=== PATIENT | male | born 1965 | race African-American/Black ===

== ENCOUNTER 2019-02-06 11:59 | Inpatient (IN) | payer MEDICAID ==
[2019-02-06] VITALS (28 sets, daily range): BP systolic 118–202; BP diastolic 62–129
[~2019-02-06] VITALS: Ht 175.3 cm; Wt 79.4 kg
[~2019-02-06 11:59] MED LIST: HEPARIN SODIUM 1,000 UNIT/1ML VIAL IV ONE; NICARDIPINE 100MCG/ML 10ML VIAL (CATH LAB) IV ONE; NITROGLYCERIN 50MCG/ML 10ML VIAL (CATH LAB) IV ONE
[2019-02-06] MEDS ORDERED: ASPIRIN 325MG EC TABLET PO ONE (12:30)
[2019-02-06] MEDS ORDERED: NITROGLYCERIN 0.4MG TABLET SL SL PRN (12:30)
[2019-02-06] MEDS ORDERED: HEPARIN 5000 UNITS/ML VIAL IV ONE (12:45)
[2019-02-06] MEDS ORDERED: IODIXANOL 320MG/ML 100 ML BOTTLE IV ONE (12:51)
[2019-02-06] MEDS ORDERED: MIDAZOLAM HCL 2 MG/2 ML VIAL ONE (12:51)
[2019-02-06] MEDS ORDERED: FENTANYL CITRATE/PF 50MCG/ML 2ML VIAL ONE (12:51)
[2019-02-06] MEDS ORDERED: LIDOCAINE HCL 1% 20ML VIAL (Pyxis) INJ ONE (12:51)
[2019-02-06 13:05] LABS: BASOPHILS % 0.7 % (0.0-2.0); EOSINOPHILS % 0.3 % (0.0-5.0); HEMATOCRIT. 55.7 % (42.0-52.0); HEMOGLOBIN. 18.8 g/dL (14.0-18.0); LYMPHOCYTES % 11.9 % (20.0-50.0); MEAN CORPUSCULAR HEMOGLOBIN 33.4 pg (28.0-32.0); MEAN CORPUSCULAR VOLUME 98.7 fL (80.0-94.0); MEAN PLATELET VOLUME 8.3 fl (7.4-10.4); MONOCYTES % 4.1 % (2.0-8.0); PLATELET 247 x1000/uL (130-400); RED BLOOD CELL COUNT 5.64 mill/uL (4.7-6.1); RED CELL DISTRIBUTION WIDTH 14.4 % (11.6-14.6)
[2019-02-06 13:17] LABS: CHLORIDE 101 mEq/L (98-107)
[2019-02-06] MEDS ORDERED: HYDRALAZINE 20MG/ML VIAL ONE (13:21)
[2019-02-06] MEDS ORDERED: ASPIRIN/SOD BICARB/CITRIC ACID 324MG TAB EFF ONE (13:26)
[2019-02-06] MEDS ORDERED: IOHEXOL-300 100 ML BOTTLE ONE (13:26)
[2019-02-06] MEDS ORDERED: NITROGLYCERIN 50MG PREMIX 250 ML IV ONE (13:28)
[2019-02-06] MEDS ORDERED: CLOPIDOGREL 75MG TABLET ONE (14:00)
[2019-02-06] MEDS ORDERED: EPTIFIBATIDE 2 MG/ML 10ML VIAL IV ONE (14:02)
[2019-02-06] MEDS ORDERED: ATROPINE SULFATE 1MG/10ML SYR IV PRN (14:15)
[2019-02-06] MEDS ORDERED: MORPHINE SULFATE 2 MG/ML CPJ (NOT FOR IM USE) IV PRN (14:15)
[2019-02-06] MEDS ORDERED: ONDANSETRON HCL 4MG/2ML INJ IV PRN ×2 (14:15→16:00)
[2019-02-06] MEDS ORDERED: ACETAMINOPHEN 325MG TABLET PO PRN (14:15)
[2019-02-06 14:24] LABS: BG CARBOXYHEMOGLOBIN 3.3 % (0.5-1.5); BG DEOXYHEMOGLOBIN 1.3 % (0.0-5.0); BG FRACTION INSPIRED OXYGEN 40; BG HCO3 ACT 23.6 mmol/L (22.0-26.0); BG METHEMOGLOBIN 0.1 % (0.0-1.5); BG OXYGEN SATURATION 98.7 % (92.0-98.5); BG OXYHEMOGLOBIN 95.3 % (94.0-97.0); BG PCO2 39.5 mmHg (35.0-45.0); BG PH 7.395 (7.350-7.450); BG PO2 131.2 mmHg (75.0-100.0); BG SAMPLE SITE A-LINE; BG TOTAL HEMOGLOBIN 16.9 g/dL (12.0-18.0); BG VENT MODE NASAL CANNULA
[2019-02-06] MEDS ORDERED: CLONIDINE 0.1MG TABLET PO PRN (15:15)
[2019-02-06] MEDS ORDERED: HYDRALAZINE 20MG/ML VIAL IV PRN (15:15)
[2019-02-06] MEDS ORDERED: CLOPIDOGREL 75MG TABLET PO NR (15:30)
[2019-02-06] MEDS ORDERED: DOCUSATE SODIUM 100MG CAPSULE PO PRN (16:00)
[2019-02-06] MEDS ORDERED: MAGNESIUM/ALUMINUM HYDROXIDE/SIMETHICONE 30ML UDC PO PRN (16:00)
[2019-02-06] MEDS ORDERED: IPRATROPIUM/ALBUTEROL 0.5-3(2.5)MG/3ML NEB HHN PRN (16:00)
[2019-02-06] MEDS ORDERED: GUAIFENESIN 200MG/10ML SUGAR FREE UDC PO PRN (16:00)
[2019-02-06] MEDS: NITROGLYCERIN 50MG PREMIX 250 ML IV PRN (16:20)
[2019-02-06] MEDS ORDERED: ALBU18HF2 IH (16:30)
[2019-02-06] MEDS ORDERED: ATROV3 NS (16:30)
[2019-02-06] MEDS: NITROGLYCERIN OINT 1GM/INCH UDPKT TD SCH (17:24)
[2019-02-06] MEDS ORDERED: AMLODIPINE 5MG TABLET PO SCH ×2 (18:00→21:00)
[2019-02-06] MEDS: AMLODIPINE 5MG TABLET PO SCH (18:16)
[2019-02-06] MEDS: ZOLPIDEM TARTRATE 5MG TABLET PO PRN (20:28)
[2019-02-06] MEDS: LORAZEPAM 0.5MG TABLET PO PRN (20:28)
[2019-02-06] MEDS: ATORVASTATIN CALCIUM 20MG TABLET PO SCH (20:29)
[2019-02-06] MEDS: ENALAPRIL 5MG TABLET PO SCH (20:29)
[2019-02-06] MEDS: FAMOTIDINE 20MG TABLET PO SCH (20:29)
[2019-02-06] MEDS ORDERED: ENALAPRIL 2.5MG TABLET PO SCH (21:00)
[2019-02-06] MEDS ORDERED: ENOXAPARIN 60MG/0.6ML SYR SUBCUT NR (21:00)
[2019-02-07] VITALS (26 sets, daily range): BP systolic 86–140; BP diastolic 52–106
[2019-02-07] MEDS: NITROGLYCERIN 50MG PREMIX 250 ML IV PRN (00:11)
[2019-02-07] MEDS: NITROGLYCERIN OINT 1GM/INCH UDPKT TD SCH ×4 (00:14→14:00)
[2019-02-07 05:41] LABS: BASOPHILS % 0.8 % (0.0-2.0); EOSINOPHILS % 1.1 % (0.0-5.0); HEMATOCRIT. 44.5 % (42.0-52.0); LYMPHOCYTES % 15.7 % (20.0-50.0); MEAN CORPUSCULAR HEMOGLOBIN 33.2 pg (28.0-32.0); MEAN CORPUSCULAR VOLUME 98.3 fL (80.0-94.0); MEAN PLATELET VOLUME 8.4 fl (7.4-10.4); MONOCYTES % 6.6 % (2.0-8.0); NEUTROPHILS % 75.8 % (40.0-76.0); PLATELET 256 x1000/uL (130-400); RED BLOOD CELL COUNT 4.52 mill/uL (4.7-6.1); RED CELL DISTRIBUTION WIDTH 14.2 % (11.6-14.6)
[2019-02-07 05:55] LABS: CHLORIDE 103 mEq/L (98-107)
[2019-02-07 06:21] LABS: LDL CHOLESTEROL 112 mg/dL (5-100)
[2019-02-07 06:22] LABS: CREATINE KINASE MB FRACTION 162.7 ng/mL (0.5-3.6); HDL CHOLESTEROL 37 mg/dL (40-59)
[2019-02-07 06:34] LABS: CREATINE KINASE 2695 IU/L (39-308)
[2019-02-07] MEDS: FAMOTIDINE 20MG TABLET PO SCH ×2 (08:52→21:30)
[2019-02-07] MEDS: ASPIRIN 325MG TABLET PO SCH (08:52)
[2019-02-07] MEDS: CLOPIDOGREL 75MG TABLET PO SCH (08:52)
[2019-02-07] MEDS: AMLODIPINE 5MG TABLET PO SCH ×2 (08:56→21:00)
[2019-02-07] MEDS: ENALAPRIL 5MG TABLET PO SCH ×2 (09:00→21:00)
[2019-02-07] MEDS ORDERED: AMLODIPINE 5MG TABLET PO SCH (11:30)
[2019-02-07] MEDS: ATORVASTATIN CALCIUM 20MG TABLET PO SCH (21:28)
[2019-02-07] MEDS: ZOLPIDEM TARTRATE 5MG TABLET PO PRN (21:40)
[2019-02-07] MEDS: LORAZEPAM 0.5MG TABLET PO PRN (21:40)
[2019-02-08] VITALS (12 sets, daily range): BP systolic 97–143; BP diastolic 47–90
[2019-02-08 07:01] LABS: BASOPHILS % 0.6 % (0.0-2.0); EOSINOPHILS % 2.1 % (0.0-5.0); HEMATOCRIT. 47.1 % (42.0-52.0); HEMOGLOBIN. 15.9 g/dL (14.0-18.0); LYMPHOCYTES % 23.2 % (20.0-50.0); MEAN CORPUSCULAR HEMOGLOBIN 33.1 pg (28.0-32.0); MEAN CORPUSCULAR VOLUME 98.3 fL (80.0-94.0); MEAN PLATELET VOLUME 8.3 fl (7.4-10.4); NEUTROPHILS % 65.1 % (40.0-76.0); PLATELET 265 x1000/uL (130-400); RED BLOOD CELL COUNT 4.79 mill/uL (4.7-6.1); RED CELL DISTRIBUTION WIDTH 14.2 % (11.6-14.6)
[2019-02-08 07:05] LABS: CHLORIDE 104 mEq/L (98-107)
[2019-02-08] MEDS: AMLODIPINE 5MG TABLET PO SCH ×2 (08:11→20:56)
[2019-02-08] MEDS: ENALAPRIL 5MG TABLET PO SCH ×2 (08:11→20:56)
[2019-02-08] MEDS: ASPIRIN 325MG TABLET PO SCH (08:11)
[2019-02-08] MEDS: CLOPIDOGREL 75MG TABLET PO SCH (08:11)
[2019-02-08] MEDS: FAMOTIDINE 20MG TABLET PO SCH ×2 (08:12→20:55)
[2019-02-08] MEDS: ATORVASTATIN CALCIUM 20MG TABLET PO SCH (20:55)
[2019-02-08] MEDS: ZOLPIDEM TARTRATE 5MG TABLET PO PRN (21:55)
[2019-02-09] VITALS (11 sets, daily range): BP systolic 102–132; BP diastolic 63–79
[2019-02-09 06:43] LABS: BASOPHILS % 0.8 % (0.0-2.0); EOSINOPHILS % 2.6 % (0.0-5.0); HEMATOCRIT. 47.5 % (42.0-52.0); HEMOGLOBIN. 16.2 g/dL (14.0-18.0); LYMPHOCYTES % 21.8 % (20.0-50.0); MEAN CORPUSCULAR HEMOGLOBIN 33.3 pg (28.0-32.0); MEAN CORPUSCULAR VOLUME 97.8 fL (80.0-94.0); MEAN PLATELET VOLUME 8.3 fl (7.4-10.4); MONOCYTES % 7.5 % (2.0-8.0); NEUTROPHILS % 67.3 % (40.0-76.0); PLATELET 270 x1000/uL (130-400); RED BLOOD CELL COUNT 4.86 mill/uL (4.7-6.1); RED CELL DISTRIBUTION WIDTH 13.9 % (11.6-14.6)
[2019-02-09 06:49] LABS: CHLORIDE 104 mEq/L (98-107)
[2019-02-09] MEDS: ASPIRIN 325MG TABLET PO SCH (08:42)
[2019-02-09] MEDS: FAMOTIDINE 20MG TABLET PO SCH (08:43)
[2019-02-09] MEDS: AMLODIPINE 5MG TABLET PO SCH (08:44)
[2019-02-09] MEDS: CLOPIDOGREL 75MG TABLET PO SCH (08:45)
[2019-02-09] MEDS: ENALAPRIL 5MG TABLET PO SCH (08:45)
== END 2019-02-09 20:00 | disposition home or self-care (01) | DRG 174 ==
LOC: ER 11:59 → CVICU 12:48 → EDBEDREQTM 12:51 → 3WST 02-07 16:30
PROVIDERS: ADMIT Internal Medicine; ATTEND Internal Medicine
PROC: 4A023N7 Measurement of Cardiac Sampling and Pressure, Left Heart, Percutaneous Approach (ICD-10-PCS; principal; 2019-02-06)
PROC: 027035Z Dilation of Coronary Artery, One Artery with Two Drug-eluting Intraluminal Devices, Percutaneous Approach (ICD-10-PCS; 2019-02-06)
PROC: B2111ZZ Fluoroscopy of Multiple Coronary Arteries using Low Osmolar Contrast (ICD-10-PCS; 2019-02-06)
PROC: B2151ZZ Fluoroscopy of Left Heart using Low Osmolar Contrast (ICD-10-PCS; 2019-02-06)
DX: I21.19 ST elevation (STEMI) myocardial infarction involving other coronary artery of inferior wall (principal); I42.9 Cardiomyopathy, unspecified; I11.9 Hypertensive heart disease without heart failure; I95.9 Hypotension, unspecified; I25.10 Atherosclerotic heart disease of native coronary artery without angina pectoris; R00.1 Bradycardia, unspecified; E78.00 Pure hypercholesterolemia, unspecified; J44.9 Chronic obstructive pulmonary disease, unspecified; E78.5 Hyperlipidemia, unspecified; F17.210 Nicotine dependence, cigarettes, uncomplicated; I25.2 Old myocardial infarction; Z79.02 Long term (current) use of antithrombotics/antiplatelets; Z79.82 Long term (current) use of aspirin; Z79.84 Long term (current) use of oral hypoglycemic drugs; Z71.6 Tobacco abuse counseling
CPT/HCPCS: 36415; 36600; 71045; 80048; 80061; 82375; 82550; 82553; 82805; 83036; 83735; 83880; 84484; 85347; 85379; 92928; 93005; 93306; 93458; 93970; 96374; 99291; C1769; C1874; C1887; C1893; J0360; J1327; J1644; J1650; J2250; J2405; J3010; J3490; J7620; Q9967; A4315